=== PATIENT | male | born 1990 | race Caucasian/White ===

== ENCOUNTER 2018-02-15 08:10 | Day surgery (SDC) | payer BC ==
[2018-02-15] MEDS ORDERED: Lactated Ringers 1,000 ML IV SCH (08:15)
[2018-02-15] MEDS ORDERED: Sodium Chloride 0.9% 10 ML Syringe FLUSH PRN (08:15)
[2018-02-15] MEDS ORDERED: Midazolam 1 MG/ML 2 ML SDV IV ONE (09:45)
[2018-02-15] MEDS ORDERED: Propofol 200 MG/20 ML SDV IV ONE (09:45)
--- NOTE | 2018-02-15 10:09 | PCM.OPNOTE ---
- General Post-Op/Procedure Note Date of Surgery/Procedure: 02/15/18 Operative Procedure(s): egd with bx Findings: gastroduodenitis Pre Op Diagnosis: epigastric abd pain. recent hx of pancreatitis Post-Op Diagnosis: gastroduodenitis Anesthesia Technique: ALANIS Primary Surgeon: Larry Eldridge Anesthesia Provider: Sunny Morris Pathology: stomach and duodenum. Complications: None Condition: Good Free Text/Narrative:: see dictation
--- NOTE | 2018-02-15 12:52 | OR ---
DATE OF OPERATION: 02/15/2018 SURGEON: Larry Eldridge MD PROCEDURE PERFORMED: EGD with cold forceps biopsy. PREOPERATIVE DIAGNOSIS: History of epigastric-abdominal pain as well as pancreatitis. POSTOPERATIVE DIAGNOSIS: Gastroduodenitis. INDICATIONS FOR PROCEDURE: This is a 27-year-old white male who is referred with the above-mentioned complaints. Workup to date has been negative. He was seen in the emergency department in [place] over the weekend and was diagnosed with an episode of pancreatitis on the basis of an elevated lipase. He is feeling much better today, but we have elected to proceed with the endoscopy as this pain existed before the pancreatitis workup. DESCRIPTION OF PROCEDURE: After an excellent IV sedation was administered, the bite block was inserted. The flexible endoscope was passed without difficulty down the patient's esophagus and into the stomach. The stomach was insufflated. The scope was passed through the pylorus, to the second portion of the duodenum, and then slowly withdrawn. The following findings were noted. Duodenum was slightly inflamed. Biopsies were taken. Stomach, diffuse gastritis noted. Biopsies were taken. GE junction measured at 40 cm. The esophagus was essentially unremarkable. The stomach was deflated. The scope was removed. The patient tolerated the procedure well. /[id number] /ADRIÁN
== END 2018-02-15 11:10 | disposition home or self-care (01) ==
LOC: FB.SDS 08:10
PROVIDERS: ATTEND Surgery
DX: K29.50 Unspecified chronic gastritis without bleeding (principal); K29.80 Duodenitis without bleeding; E03.4 Atrophy of thyroid (acquired); Z79.899 Other long term (current) drug therapy; Z87.891 Personal history of nicotine dependence
CPT/HCPCS: 43239; J2250; J2704; J7120; 88305; 88342

== ENCOUNTER 2018-04-20 19:18 | Emergency (ER) | payer BC ==
[2018-04-20] MEDS ORDERED: Sodium Chloride 0.9% 10 ML Syringe FLUSH PRN (20:03)
[2018-04-20] MEDS ORDERED: Ondansetron 4 MG/2 ML SDV IVPUSH ONE (20:04)
[2018-04-20] MEDS ORDERED: Pantoprazole 40 MG Vial IVPUSH ONE (20:04)
[2018-04-20] MEDS ORDERED: Alum Hydroxide/Mag Hydroxide 15 ML, Lidocaine 2% 15 ML PO ONE ×2 (20:05)
--- NOTE | 2018-04-20 20:10 | EDM.PDOC ---
ED HPI GENERAL MEDICAL PROBLEM - General Chief Complaint: Abdominal Pain Stated Complaint: STOMACH PAIN Time Seen by Provider: 04/20/18 20:05 Source of Information: Reports: Patient History Limitations: Reports: No Limitations - History of Present Illness INITIAL COMMENTS - FREE TEXT/NARRATIVE: History of gastroduodenitis diagnosed by EGD 01/2018, finished course of PPI, sucrasulfate @ 1.5 months ago. Presents with epigastric pain x 2 days associated w/ nausea, no vomiting or diarrhea. Has had negative workup for gallbladder disease. Also endorses h/o pancreatitis. Rarely consumes alcohol. Duration: Day(s): (2) Location: Reports: Abdomen Severity: Moderate Improves with: Reports: None Worsens with: Reports: None Associated Symptoms: Reports: Nausea/Vomiting - Related Data Allergies Allergy/AdvReac Type Severity Reaction Status Date / Time No Known Allergies Allergy Verified 04/20/18 20:01 Home Meds: Home Meds Cholecalciferol (Vitamin D3) [Vitamin D3] 2,000 unit PO DAILY 02/14/18 [History] Levothyroxine 200 mcg PO DAILY 02/14/18 [History] Montelukast [Singulair] 10 mg PO DAILY 02/14/18 [History] Omeprazole Magnesium 40 mg PO DAILY #15 capsule.dr 04/20/18 [Rx] Sucralfate [Carafate] 1 gm PO QID #400 ml 04/20/18 [Rx] Past Medical History HEENT History: Reports: Sinusitis, Other (See Below) Other HEENT History: CHRONIC OTITIS EXTERNA OF RIGHT EAR, HEARING LOSS RIGHT EAR Cardiovascular History: Reports: None Respiratory History: Reports: None Gastrointestinal History: Reports: Pancreatitis, Other (See Below) ( gastroduodenitis) Genitourinary History: Reports: None 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 Musculoskeletal History: Reports: None Neurological History: Reports: None Psychiatric History: Reports: None Endocrine/Metabolic History: Reports: Hypothyroidism Hematologic History: Reports: None Immunologic History: Reports: None Oncologic (Cancer) History: Reports: None Dermatologic History: Reports: Eczema - Infectious Disease History Infectious Disease History: Reports: Chicken Pox, Measles, Mumps - Past Surgical History Head Surgeries/Procedures: Reports: None HEENT Surgical History: Reports: Naso-Sinus Surgery GI Surgical History: Reports: Colonoscopy Social & Family History - Family History Family Medical History: Noncontributory - Tobacco Use Smoking Status *Q: Never Smoker - Caffeine Use Caffeine Use: Reports: Coffee, Energy Drinks, Soda - Alcohol Use Alcohol Use History: Yes Alcohol Use Frequency: Rarely - Recreational Drug Use Recreational Drug Use: No ED ROS GENERAL - Review of Systems Review Of Systems: ROS reveals no pertinent complaints other than HPI. ED EXAM, GI/ABD - Physical Exam Exam: See Below Exam Limited By: No Limitations General Appearance: Alert, WD/WN, No Apparent Distress Ears: Normal External Exam Nose: Normal Inspection Throat/Mouth: No Airway Compromise Head: Atraumatic, Normocephalic Neck: Normal Inspection Respiratory/Chest: No Respiratory Distress, Lungs Clear, Normal Breath Sounds, No Accessory Muscle Use Cardiovascular: Regular Rate, Rhythm, No Murmur GI/Abdominal Exam: Normal Bowel Sounds, Soft, No Distention, Tender (moderate epigastric). No: Guarding, Rebound (Male) Exam: No Hernia Rectal (Males) Exam: Deferred Extremities: Normal Range of Motion Neurological: Alert, Oriented, Normal Cognition, No Motor/Sensory Deficits Psychiatric: Normal Affect, Normal Mood Skin Exam: Warm, Dry Course - Orders/Labs/Meds Orders: Active Orders 24 hr Category Date Time Status UA W/MICROSCOPIC [URIN] Stat Lab 04/20/18 20:53 Ordered Sodium Chloride 0.9% [Normal Saline] 1,000 ml Med 04/20/18 20:15 Active IV ASDIRECTED Sodium Chloride 0.9% [Saline Flush] Med 04/20/18 20:03 Active 10 ml FLUSH ASDIRECTED PRN Sucralfate [Carafate] Med 04/20/18 21:00 Once 1 gm PO ONETIME ONE Saline Lock Insert [OM.PC] Routine Oth 04/20/18 20:03 Ordered Medication Orders Sodium Chloride (Normal Saline) 1,000 mls @ 200 mls/hr IV ASDIRECTED KATIE Last Admin: 04/20/18 20:29 Dose: 200 mls/hr Sodium Chloride (Saline Flush) 10 ml FLUSH ASDIRECTED PRN PRN Reason: Keep Vein Open Last Admin: 04/20/18 20:39 Dose: 10 ml Labs: Laboratory Tests 04/20/18 04/20/18 Range/Units 20:15 20:15 WBC 7.4 (4.5-12.0) X10-3/uL RBC 5.74 (4.30-5.75) x10(6)uL Hgb 17.4 H (11.5-15.5) g/dL Hct 51.1 (30.0-51.3) % MCV 89.1 (80-96) fL MCH 30.4 (27.7-33.6) pg MCHC 34.1 (32.2-35.4) g/dL RDW 12.8 (11.5-15.5) % Plt Count 177 (125-369) X10(3)uL MPV 9.6 (7.4-10.4) fL Neut % (Auto) 72.3 (46-82) % Lymph % (Auto) 19.5 (13-37) % Ferry % (Auto) 4.6 (4-12) % Eos % (Auto) 3 (1.0-5.0) % Baso % (Auto) 1 (0-2) % Neut # (Auto) 5.4 (1.6-8.3) # Lymph # (Auto) 1.4 (0.6-5.0) # Ferry # (Auto) 0.3 (0.0-1.3) # Eos # (Auto) 0.2 (0.0-0.8) # Baso # (Auto) 0.1 (0.0-0.2) # Sodium 137 (135-145) mmol/L Potassium 4.0 (3.5-5.3) mmol/L Chloride 102 (100-110) mmol/L Carbon Dioxide 28 (21-32) mmol/L BUN 12 (7-18) mg/dL Creatinine 1.0 (0.70-1.30) mg/dL Est Cr Clr Drug Dosing TNP Estimated GFR (MDRD) > 60 (>60) BUN/Creatinine Ratio 12.0 (9-20) Glucose 91 (80-116) mg/dL Calcium 9.4 (8.6-10.2) mg/dL Total Bilirubin 0.6 (0.1-1.3) mg/dL AST 25 (5-25) IU/L ALT 46 H (12-36) U/L Alkaline Phosphatase 56 (56-112) IU/L Total Protein 7.7 (6.0-8.0) g/dL Albumin 4.4 (3.5-5.2) g/dL Globulin 3.3 g/dL Albumin/Globulin Ratio 1.3 Amylase 37 (25-115) U/L Meds: Medications Generic Name Dose Route Start Last Admin Trade Name Ehq PRN Reason Stop Dose Admin Sodium Chloride 1,000 mls @ 200 mls/hr 04/20/18 20:15 04/20/18 20:29 Normal Saline IV 200 mls/hr ASDIRECTED KATIE Administration Sodium Chloride 10 ml 04/20/18 20:03 04/20/18 20:39 Saline Flush FLUSH 10 ml ASDIRECTED PRN Administration Keep Vein Open Discontinued Medications Generic Name Dose Route Start Last Admin Trade Name Freq PRN Reason Stop Dose Admin Al Hydroxide/Mg Hydroxide 15 0 ml 04/20/18 20:05 04/20/18 20:38 ml/ Lidocaine HCl 15 ml PO 04/20/18 20:06 15 ml ONETIME ONE Administration Ondansetron HCl 4 mg 04/20/18 20:04 04/20/18 20:39 Zofran IVPUSH 04/20/18 20:05 4 mg ONETIME ONE Administration Pantoprazole Sodium 40 mg 04/20/18 20:04 04/20/18 20:39 Protonix Iv IVPUSH 04/20/18 20:05 40 mg ONETIME ONE Administration - Re-Assessments/Exams Free Text/Narrative Re-Assessment/Exam: 04/20/18 21:01 Symptoms have improved. Departure - Departure Time of Disposition: 21:01 Disposition: Home, Self-Care 01 Condition: Good Clinical Impression: Gastritis Qualifiers: Gastritis type: other gastritis Chronicity: acute Gastritis bleeding: without bleeding Qualified Code(s): K29.00 - Acute gastritis without bleeding - Discharge Information *PRESCRIPTION DRUG MONITORING PROGRAM REVIEWED*: No *COPY OF PRESCRIPTION DRUG MONITORING REPORT IN PATIENT DEMI: Not Applicable Prescriptions: Omeprazole Magnesium 40 mg PO DAILY #15 capsule. Sucralfate [Carafate] 1 gm PO QID #400 ml Instructions: Gastritis, Adult, [id number] Referrals: Edilma Cooley PA-C [Primary Care Provider] - Larry Eldridge MD [Physician] - Forms: ED Department Discharge Additional Instructions: Fill prescriptions for omeprazole and carafate and take as directed. Avoid spicy and fatty foods. Follow up with Dr. Eldridge in 2-3 days. Return to the ER if symptoms worsen. - My Orders Last 24 Hours: My Active Orders 04/20/18 20:03 Sodium Chloride 0.9% [Saline Flush] 10 ml FLUSH ASDIRECTED PRN Saline Lock Insert [OM.PC] Routine 04/20/18 20:15 Sodium Chloride 0.9% [Normal Saline] 1,000 ml IV ASDIRECTED 04/20/18 20:53 UA W/MICROSCOPIC [URIN] Stat 04/20/18 21:00 Sucralfate [Carafate] 1 gm PO ONETIME ONE - Assessment/Plan Last 24 Hours: My Active Orders 04/20/18 20:03 Sodium Chloride 0.9% [Saline Flush] 10 ml FLUSH ASDIRECTED PRN Saline Lock Insert [OM.PC] Routine 04/20/18 20:15 Sodium Chloride 0.9% [Normal Saline] 1,000 ml IV ASDIRECTED 04/20/18 20:53 UA W/MICROSCOPIC [URIN] Stat 04/20/18 21:00 Sucralfate [Carafate] 1 gm PO ONETIME ONE
[2018-04-20] MEDS ORDERED: Sodium Chloride 0.9% 1,000 ML IV SCH (20:15)
[2018-04-20] MEDS ORDERED: Sucralfate 1 GM Tab PO ONE (21:00)
== END 2018-04-20 21:54 | disposition home or self-care (01) ==
LOC: FB.ED 19:18
DX: K29.00 Acute gastritis without bleeding (principal); Z79.899 Other long term (current) drug therapy
CPT/HCPCS: 36415; 80053; 81001; 82150; 85025; 96361; 96374; 96375; 99284; A9270; C9113; J2405; J7030; J7050

== ENCOUNTER 2018-04-21 07:37 | Emergency (ER) | payer BC ==
[2018-04-21] MEDS ORDERED: Pantoprazole 40 MG Vial IVPUSH ONE (08:03)
[2018-04-21] MEDS ORDERED: Ondansetron 4 MG/2 ML SDV IVPUSH ONE (08:03)
[2018-04-21] MEDS ORDERED: Sodium Chloride 0.9% 10 ML Syringe FLUSH PRN (08:03)
--- NOTE | 2018-04-21 08:12 | EDM.PDOC ---
ED HPI GENERAL MEDICAL PROBLEM - General Chief Complaint: Abdominal Pain Stated Complaint: ABD PAIN Time Seen by Provider: 04/21/18 08:09 Source of Information: Reports: Patient History Limitations: Reports: No Limitations - History of Present Illness INITIAL COMMENTS - FREE TEXT/NARRATIVE: Returns to the ED with epigastric pain. Was treated in the ED last night with 2 days of epigastric pain, given Protonix, GI cocktail and Carafate with improvement. Patient states he felt well after discharge and ate toast w/o difficulty. Patient awoke at 0400 with recurrence of epigastric pain associated w/ nausea and loose stool. He has not yet filled prescriptions written for Omeprazole and Carafate. Onset: Sudden Duration: Hour(s): (4) Location: Reports: Abdomen, Radiates to (back) Quality: Reports: Dull Severity: Moderate mid upper abdomen radiating to mid back Pain Score (Numeric/FACES): 7 - Related Data Allergies Allergy/AdvReac Type Severity Reaction Status Date / Time No Known Allergies Allergy Verified 04/21/18 07:48 Home Meds: Home Meds Cholecalciferol (Vitamin D3) [Vitamin D3] 2,000 unit PO DAILY 02/14/18 [History] Levothyroxine 200 mcg PO DAILY 02/14/18 [History] Montelukast [Singulair] 10 mg PO DAILY 02/14/18 [History] Omeprazole Magnesium 40 mg PO DAILY #15 capsule.dr 04/20/18 [Rx] Sucralfate [Carafate] 1 gm PO QID #400 ml 04/20/18 [Rx] Past Medical History HEENT History: Reports: Sinusitis, Other (See Below) Other HEENT History: CHRONIC OTITIS EXTERNA OF RIGHT EAR, HEARING LOSS RIGHT EAR Cardiovascular History: Reports: None Respiratory History: Reports: None Gastrointestinal History: Reports: Pancreatitis, Other (See Below) ( Gastroduodentitis) Genitourinary History: Reports: None 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 Musculoskeletal History: Reports: None Neurological History: Reports: None Psychiatric History: Reports: None Endocrine/Metabolic History: Reports: Hypothyroidism Hematologic History: Reports: None Immunologic History: Reports: None Oncologic (Cancer) History: Reports: None Dermatologic History: Reports: Eczema - Infectious Disease History Infectious Disease History: Reports: Chicken Pox, Measles, Mumps - Past Surgical History Head Surgeries/Procedures: Reports: None HEENT Surgical History: Reports: Naso-Sinus Surgery GI Surgical History: Reports: Colonoscopy Social & Family History - Family History Family Medical History: Noncontributory - Tobacco Use Smoking Status *Q: Never Smoker - Caffeine Use Caffeine Use: Reports: Coffee, Energy Drinks, Soda - Recreational Drug Use Recreational Drug Use: No ED ROS GENERAL - Review of Systems Review Of Systems: ROS reveals no pertinent complaints other than HPI. ED EXAM, GI/ABD - Physical Exam Exam: See Below Exam Limited By: No Limitations General Appearance: Alert, WD/WN, No Apparent Distress Ears: Normal External Exam Nose: Normal Inspection Throat/Mouth: No Airway Compromise Head: Atraumatic, Normocephalic Neck: Full Range of Motion Respiratory/Chest: No Respiratory Distress, Lungs Clear, Normal Breath Sounds Cardiovascular: Regular Rate, Rhythm, No Murmur GI/Abdominal Exam: Normal Bowel Sounds, Soft, No Distention, Tender (moderate epigastric) (Male) Exam: Deferred Rectal (Males) Exam: Deferred Back Exam: Normal Inspection Extremities: Normal Range of Motion Neurological: Alert, Normal Cognition, No Motor/Sensory Deficits Psychiatric: Normal Affect, Normal Mood Skin Exam: Warm, Dry, Intact Course - Vital Signs Last Recorded V/S: Last Vital Signs Temp 36.6 C 04/21/18 11:08 Pulse 73 04/21/18 11:08 Resp 18 04/21/18 11:08 BP 116/67 04/21/18 11:08 Pulse Ox 99 04/21/18 11:08 - Orders/Labs/Meds Orders: Active Orders 24 hr Category Date Time Status Abdomen Pelvis w Cont [CT] Stat Exams 04/21/18 08:05 Taken Sodium Chloride 0.9% [Normal Saline] 1,000 ml Med 04/21/18 08:15 Active IV ASDIRECTED Sodium Chloride 0.9% [Saline Flush] Med 04/21/18 08:03 Active 10 ml FLUSH ASDIRECTED PRN Saline Lock Insert [OM.PC] Routine Oth 04/21/18 08:03 Ordered Medication Orders Sodium Chloride (Normal Saline) 1,000 mls @ 200 mls/hr IV ASDIRECTED KATIE Last Admin: 04/21/18 08:16 Dose: 200 mls/hr Sodium Chloride (Saline Flush) 10 ml FLUSH ASDIRECTED PRN PRN Reason: Keep Vein Open Last Admin: 04/21/18 08:15 Dose: 10 ml Labs: Laboratory Tests 04/21/18 04/21/18 Range/Units 08:35 08:35 WBC 8.3 (4.5-12.0) X10-3/uL RBC 5.47 (4.30-5.75) x10(6)uL Hgb 16.9 H (11.5-15.5) g/dL Hct 49.5 (30.0-51.3) % MCV 90.5 (80-96) fL MCH 30.9 (27.7-33.6) pg MCHC 34.2 (32.2-35.4) g/dL RDW 12.3 (11.5-15.5) % Plt Count 179 (125-369) X10(3)uL MPV 10.4 (7.4-10.4) fL Neut % (Auto) 76.5 (46-82) % Lymph % (Auto) 15.5 (13-37) % Rock % (Auto) 5.6 (4-12) % Eos % (Auto) 2 (1.0-5.0) % Baso % (Auto) 0 (0-2) % Neut # (Auto) 6.3 (1.6-8.3) # Lymph # (Auto) 1.3 (0.6-5.0) # Rock # (Auto) 0.5 (0.0-1.3) # Eos # (Auto) 0.2 (0.0-0.8) # Baso # (Auto) 0.0 (0.0-0.2) # Sodium 137 (135-145) mmol/L Potassium 4.3 (3.5-5.3) mmol/L Chloride 102 (100-110) mmol/L Carbon Dioxide 30 (21-32) mmol/L BUN 11 (7-18) mg/dL Creatinine 1.0 (0.70-1.30) mg/dL Est Cr Clr Drug Dosing 118.18 mL/min Estimated GFR (MDRD) > 60 (>60) BUN/Creatinine Ratio 11.0 (9-20) Glucose 100 (80-116) mg/dL Calcium 8.9 (8.6-10.2) mg/dL Total Bilirubin 0.8 (0.1-1.3) mg/dL AST 19 D (5-25) IU/L ALT 41 H D (12-36) U/L Alkaline Phosphatase 53 L (56-112) IU/L Total Protein 7.3 (6.0-8.0) g/dL Albumin 4.1 (3.5-5.2) g/dL Globulin 3.2 g/dL Albumin/Globulin Ratio 1.3 Amylase 36 (25-115) U/L Meds: Medications Generic Name Dose Route Start Last Admin Trade Name Freq PRN Reason Stop Dose Admin Sodium Chloride 1,000 mls @ 200 mls/hr 04/21/18 08:15 04/21/18 08:16 Normal Saline IV 200 mls/hr ASDIRECTED KATIE Administration Sodium Chloride 10 ml 04/21/18 08:03 04/21/18 08:15 Saline Flush FLUSH 10 ml ASDIRECTED PRN Administration Keep Vein Open Discontinued Medications Generic Name Dose Route Start Last Admin Trade Name Freq PRN Reason Stop Dose Admin Iopamidol 100 ml 04/21/18 09:31 04/21/18 09:43 Isovue-[id number] (76%) IV 04/21/18 09:32 100 ml ONETIME ONE Administration Ondansetron HCl 4 mg 04/21/18 08:03 04/21/18 08:19 Zofran IVPUSH 04/21/18 08:04 4 mg ONETIME ONE Administration Pantoprazole Sodium 40 mg 04/21/18 08:03 04/21/18 08:19 Protonix Iv IVPUSH 04/21/18 08:04 40 mg ONETIME ONE Administration Sucralfate 1 gm 04/21/18 08:04 04/21/18 09:00 Carafate PO 04/21/18 08:05 1 gm ONETIME ONE Administration - Radiology Interpretation Free Text/Narrative:: CT Abd/Pelvis w/ contrast: No acute abnormalities. - Re-Assessments/Exams Free Text/Narrative Re-Assessment/Exam: 04/21/18 11:18 Symptoms have improved. Case discussed with Dr. Eldridge, recommends resuming PPI and Carafate, and follow up with primary physician. Departure - Departure Time of Disposition: 11:19 Disposition: Home, Self-Care 01 Condition: Good Clinical Impression: Gastritis Qualifiers: Gastritis type: other gastritis Chronicity: acute Gastritis bleeding: without bleeding Qualified Code(s): K29.00 - Acute gastritis without bleeding - Discharge Information *PRESCRIPTION DRUG MONITORING PROGRAM REVIEWED*: No *COPY OF PRESCRIPTION DRUG MONITORING REPORT IN PATIENT DEMI: Not Applicable Instructions: Gastritis, Adult, [id number] Referrals: Edilma Cooley PA-C [Primary Care Provider] - Forms: ED Department Discharge Additional Instructions: Fill prescriptions for Omeprazole and Carafate and take as directed. Follow up with your primary physician in 2-3 days. - My Orders Last 24 Hours: My Active Orders 04/21/18 08:03 Sodium Chloride 0.9% [Saline Flush] 10 ml FLUSH ASDIRECTED PRN Saline Lock Insert [OM.PC] Routine 04/21/18 08:05 Abdomen Pelvis w Cont [CT] Stat 04/21/18 08:15 Sodium Chloride 0.9% [Normal Saline] 1,000 ml IV ASDIRECTED - Assessment/Plan Last 24 Hours: My Active Orders 04/21/18 08:03 Sodium Chloride 0.9% [Saline Flush] 10 ml FLUSH ASDIRECTED PRN Saline Lock Insert [OM.PC] Routine 04/21/18 08:05 Abdomen Pelvis w Cont [CT] Stat 04/21/18 08:15 Sodium Chloride 0.9% [Normal Saline] 1,000 ml IV ASDIRECTED
[2018-04-21] MEDS ORDERED: Sodium Chloride 0.9% 1,000 ML IV SCH (08:15)
[2018-04-21] MEDS: Sucralfate Suspension 1 GM/10 ML Cup PO ONE ×2 (08:30→09:00)
[2018-04-21] MEDS ORDERED: Iopamidol 755 Mg/ML 100 ML Bottle IV ONE (09:31)
== END 2018-04-21 11:53 | disposition home or self-care (01) ==
LOC: FB.ED 07:37
DX: K29.00 Acute gastritis without bleeding (principal); E03.9 Hypothyroidism, unspecified
CPT/HCPCS: 36415; 74177; 80053; 82150; 85025; 96361; 96374; 96375; 99284; A9270-GY; C9113; J2405; J7030; J7050; Q9967